=== PATIENT | male | born 1955 | race Two or more races ===

== ENCOUNTER 2019-01-11 06:57 | Emergency (ER) | payer MEDICAID ==
[~2019-01-11] VITALS: Ht 172.7 cm; Wt 68.9 kg
[2019-01-11 08:09] VITALS: BP 109/64
[2019-01-11 09:02] LABS: Urine Bacteria NONE SEEN /hpf (None Seen); Urine Blood Negative /uL (Negative); Urine Specific Gravity 1.013 (1.001-1.035); Urine WBC <1 /hpf (0 - 3)
[2019-01-12] MEDS ORDERED: LISI-646 PO (06:20)
== END 2019-01-11 10:05 | disposition home or self-care (01) ==
LOC: ER 06:57
DX: R33.9 Retention of urine, unspecified (principal); N40.0 Benign prostatic hyperplasia without lower urinary tract symptoms; I10 Essential (primary) hypertension
CPT/HCPCS: 51702; 81001; 84154

== ENCOUNTER 2019-01-11 14:58 | Inpatient (IN) | payer MEDICAID ==
[~2019-01-11] VITALS: Ht 172.7 cm; Wt 72.1 kg
[2019-01-11] MEDS ORDERED: ONDANSETRON HCL 4 MG/2 ML VIAL IV ONE ×2 (19:30→23:15)
[2019-01-11] MEDS ORDERED: SODIUM CHLORIDE 0.9% 1,000 ML IV ONE (19:30)
[2019-01-11] MEDS ORDERED: MORPHINE SULFATE 4 MG/ML SYR/VIAL IV ONE ×2 (19:30→23:15)
[2019-01-11 19:56] LABS: Basophils # (auto) 0 uL; Basophils % (auto) 0.6 % (0.0-2.0); Eosinophils # (auto) 0 uL; Eosinophils % (auto) 0.2 % (0.0-7.0); Hematocrit 41.3 % (41.0-53.0); Hemoglobin 13.9 g/dL (13.5-17.5); Lymphocytes # (auto) 1.1 uL; Lymphocytes % (auto) 15.1 % (10.0-50.0); Mean Corpuscular Hemoglobin 31.1 pg (28.0-32.0); Mean Corpuscular Hgb Conc. 33.6 g/dL (32.0-36.0); Mean Corpuscular Volume 92.5 fL (80.0-100.0); Monocytes # (auto) 0.6 uL; Monocytes % (auto) 7.7 % (0.0-12.0); Neutrophils # (auto) 5.8 uL; Neutrophils % (auto) 76.4 % (37.0-80.0); Platelet Count (auto) 212 10^3/uL (140-450); Red Blood Cells 4.46 10^6/uL (4.5-5.90); Red Cell Distribution Width 13.5 % (11.8-14.3); White Blood Cell 7.6 10^3/uL (4.4-10.8)
[2019-01-11 20:08] LABS: Albumin 3.8 g/dL (3.4-5.0); Calcium 9.2 mg/dL (8.5-10.1)
[2019-01-11 20:11] LABS: BUN/Creatinine Ratio 13.5
[2019-01-11] MEDS ORDERED: POTASSIUM CHL 20 Meq TABLET PO ONE (21:00)
[2019-01-11 21:23] LABS: Potassium 2.9 mmol/L (3.5-5.1)
[2019-01-11 22:42] LABS: Urine Bacteria NONE SEEN /hpf (None Seen); Urine Blood 3+ /uL (Negative); Urine Mucus FEW (None Seen); Urine Specific Gravity 1.023 (1.001-1.035); Urine WBC 17 /hpf (0 - 3)
[2019-01-11] MEDS ORDERED: ONDANSETRON HCL 4 MG/2 ML VIAL ONE (23:14)
[2019-01-11] MEDS ORDERED: cefTRIAXone 1GM/50ML D5W 50 ML IV ONE ×2 (23:14→23:30)
[2019-01-11] MEDS ORDERED: cefTRIAXone SOD 1,000 MG VL IM ONE (23:15)
[2019-01-12] MEDS ORDERED: ONDANSETRON HCL 4 MG/2 ML VIAL IV PRN (01:15)
[2019-01-12] MEDS ORDERED: ACETAMINOPHEN 500 MG TAB PO PRN (01:15)
[2019-01-12] MEDS ORDERED: TEMAZEPAM 15 MG CAP PO PRN (01:15)
[2019-01-12] MEDS ORDERED: IOHEXOL 300 MG/ML 100ML BOTTLE IJ ONE (02:23)
[2019-01-12] MEDS ORDERED: GASTROGRAFIN 30 ML SOL ONE ×2 (02:23→09:00)
[2019-01-12] MEDS: SODIUM CHLORIDE 0.9% 1,000 ML IV SCH ×2 (02:30→16:07)
[2019-01-12 05:45] VITALS: BP 100/66
[2019-01-12 05:59] VITALS: BP 100/66
[2019-01-12] MEDS ORDERED: PANTOPRAZOLE 40 MG TAB PO SCH (06:00)
--- NOTE | 2019-01-12 06:15 | NUR ---
MS admit from [facility] admitted to [facility] unit after SBAR received. Patient oriented to [facility]od[facility] RN, unit, room 247, bed A, and unit policies regarding patient care and visiting hours. Patient VS taken, weighed by bedscale and encouraged to call if they need something. All questions and concerns addressed, patient verbalized understanding.
[2019-01-12] MEDS: HYDROcodone-ACET 5/325MG TAB PO PRN ×2 (06:16→14:36)
[2019-01-12] MEDS ORDERED: LISI-646 PO (06:20)
--- NOTE | 2019-01-12 06:20 | NUR ---
Replaced leg bag with regular marie bag. Emptied 250ml of clear yellow void. Patient still complaining of moderate pain from penis.
--- NOTE | 2019-01-12 06:25 | NUR ---
Dr. Salcido at bedside.
[2019-01-12] MEDS ORDERED: IODIXANOL 320MG/ML 100ML BTL IV ONE (06:48)
[2019-01-12 07:40] VITALS: BP 91/52
--- NOTE | 2019-01-12 07:45 | NUR ---
opening patient in bed, bed in lowest position, call light within reach. No distress noted at this time. Urology consult from dr solitario per [facility] nurse, able to see as outpatient and may discharge with marie. Gi consult with dr brown, per the liver lesion. CT abdomen mild porstatomegaly, 7 cm lesion on R liver lobe. potassium 2.9 40 meq po will continue to monitor this patient
[2019-01-12 08:04] LABS: Basophils # (auto) 0 uL; Basophils % (auto) 0.4 % (0.0-2.0); Eosinophils # (auto) 0.1 uL; Eosinophils % (auto) 1.3 % (0.0-7.0); Hematocrit 37.2 % (41.0-53.0); Hemoglobin 12.6 g/dL (13.5-17.5); Lymphocytes # (auto) 1.2 uL; Lymphocytes % (auto) 18.2 % (10.0-50.0); Mean Corpuscular Hemoglobin 31.3 pg (28.0-32.0); Mean Corpuscular Hgb Conc. 33.8 g/dL (32.0-36.0); Mean Corpuscular Volume 92.6 fL (80.0-100.0); Monocytes # (auto) 0.5 uL; Monocytes % (auto) 8.2 % (0.0-12.0); Neutrophils # (auto) 4.6 uL; Neutrophils % (auto) 71.9 % (37.0-80.0); Platelet Count (auto) 190 10^3/uL (140-450); Red Blood Cells 4.02 10^6/uL (4.5-5.90); Red Cell Distribution Width 13.5 % (11.8-14.3); White Blood Cell 6.4 10^3/uL (4.4-10.8)
[2019-01-12 08:32] LABS: BUN/Creatinine Ratio 15.8; Calcium 8.2 mg/dL (8.5-10.1); Potassium 3.6 mmol/L (3.5-5.1)
[2019-01-12 14:00] VITALS: BP 88/44
[2019-01-12 16:40] VITALS: BP 88/59
--- NOTE | 2019-01-12 17:04 | NUR ---
md calderon mancera. discusses with patient that he will go home with the marie catheter and follow up with dr solitario as outpatient regarding his probable enlarged prostate
--- NOTE | 2019-01-12 17:40 | NUR ---
nurse note removed the marie catheter per the patients request. md kayley harvey at bedside; the patient does not want to follow through with keeping the marie catheter in upon discharge, he would like to sign against medical advice.
--- NOTE | 2019-01-12 17:42 | NUR ---
ama form ama has been signed with md kayley harvey at bedside
[2019-01-12] MEDS ORDERED: TAMSULOSIN HYDROCHLORIDE 0.4 MG CAP PO SCH (18:00)
--- NOTE | 2019-01-12 18:00 | NUR ---
PATIENT SIGNED OUT AMA
[2019-01-12] MEDS ORDERED: cefTRIAXone 1GM/50ML D5W 50 ML IV SCH (22:00)
--- NOTE | 2019-01-13 10:41 | NUR ---
faxed to [facility] to get auth for [facility].
== END 2019-01-12 17:28 | disposition left against medical advice (07) | DRG 466 ==
LOC: EDBD 14:58 → EDUNIT# 14:58 → ER 15:04 → OVERFLOW 01-12 01:20 → EAST 01-12 05:35
PROVIDERS: ADMIT Nurse Practitioner Family; ATTEND Internal Medicine
DX: T83.031A Leakage of indwelling urethral catheter, initial encounter (principal); N17.9 Acute kidney failure, unspecified; N30.01 Acute cystitis with hematuria; D18.03 Hemangioma of intra-abdominal structures; E87.6 Hypokalemia; I10 Essential (primary) hypertension; K57.30 Diverticulosis of large intestine without perforation or abscess without bleeding; N40.1 Benign prostatic hyperplasia with lower urinary tract symptoms; R33.8 Other retention of urine; Y73.8 Miscellaneous gastroenterology and urology devices associated with adverse incidents, not elsewhere classified; K76.9 Liver disease, unspecified; Z53.21 Procedure and treatment not carried out due to patient leaving prior to being seen by health care provider; K80.20 Calculus of gallbladder without cholecystitis without obstruction; Z83.3 Family history of diabetes mellitus
CPT/HCPCS: 36415; 74176; 74177; 80048; 80053; 81001; 85025; 96361; 96365; 96375; G0378; J0696; J2405; Q9967